=== PATIENT | female | born 1970 | race Hispanic/Latino ===

== ENCOUNTER 2017-10-22 16:07 | Emergency (ER) | payer OTHER ==
[~2017-10-22] VITALS: Ht 160 cm; Wt 90.7 kg
[2017-10-22] MEDS ORDERED: MORPHINE SULFATE 2 MG/ML SYR IV STA (16:59)
[2017-10-22] MEDS ORDERED: ONDANSETRON HCL INJ 2 MG/ML VIAL IV STA (16:59)
[2017-10-22] MEDS ORDERED: MORPHINE SULFATE 2 MG/ML SYR IM STA (18:16)
[2017-10-22] MEDS ORDERED: ONDANSETRON HCL 4 MG ORAL DISINTEGRATING TAB PO ONE (18:30)
[2017-10-22 19:08] VITALS: BP 121/71
== END 2017-10-22 19:12 | disposition home or self-care (01) ==
LOC: FSED 16:07
DX: R10.11 Right upper quadrant pain (principal); R11.2 Nausea with vomiting, unspecified; N30.90 Cystitis, unspecified without hematuria; K80.20 Calculus of gallbladder without cholecystitis without obstruction; K75.9 Inflammatory liver disease, unspecified; Z98.84 Bariatric surgery status
CPT/HCPCS: 76705; 80053; 81003; 81025; 85025; 87086; 99283; J2270; J2405

== ENCOUNTER 2021-03-19 17:34 | Emergency (ER) | payer BC, OTHER ==
[~2021-03-19] VITALS: Ht 160 cm; Wt 84.8 kg
[2021-03-19] MEDS ORDERED: IOPAMIDOL 370 MG/ML 200 ML INFUS..BTL INJ ONE (18:23)
[2021-03-19] MEDS ORDERED: SODIUM CHLORIDE 0.9% 50ML 50 ML ONE (18:23)
[2021-03-19] MEDS ORDERED: SODIUM CHLORIDE 0.9% 1000ML 1,000 ML IV STA (19:12)
[2021-03-19] MEDS ORDERED: SODIUM CHLORIDE 0.9% 1000ML 1,000 ML ONE (19:48)
[2021-03-19] MEDS ORDERED: DEXAMETHASONE6 MG PO (20:50)
[2021-03-19] MEDS ORDERED: ZITHROMAX250 MG PO (20:50)
[2021-03-19 21:18] VITALS: BP 136/78
== END 2021-03-19 21:18 | disposition home or self-care (01) ==
LOC: FSED 19:13
DX: R50.9 Fever, unspecified (principal); U07.1 COVID-19; J18.9 Pneumonia, unspecified organism; R05 Cough; R06.02 Shortness of breath; Z98.84 Bariatric surgery status
CPT/HCPCS: 71260; 80053; 85025; 99284; J7030; Q9967; U0002